=== PATIENT | female | born 1955 | race Caucasian/White ===

== ENCOUNTER → 2019-07-01 | Outpatient (CLI) | payer OTHER ==
--- NOTE | 2019-07-01 15:11 | RAD ---
EXAM DESCRIPTION: Chest x-ray 2 Views CLINICAL HISTORY: DYSPNEA UNSPEC COMPARISON: June 14, 2015 TECHNIQUE: PA/lateral FINDINGS: Heart size is large with normal pulmonary vascularity. No pleural effusion or pneumothorax. Mild increased density in the lung bases may be partial volume loss. Mid and upper lungs are clear. Lateral view shows intact sternum and T-spine. No definite consolidation on the lateral view to suggest pneumonia. Chest x-ray is taken in a lesser degree of inspiration than on the previous study. IMPRESSION: No acute process is identified in the chest. Electronically signed by: Mazin Doss MD 07/01/2019 3:09 PM CDT
== END ==
LOC: LAB.O 10:53
PROVIDERS: ATTEND Nurse Practitioner Family
DX: Z00.00 Encounter for general adult medical examination without abnormal findings (principal); R06.00 Dyspnea, unspecified; E78.49 Other hyperlipidemia; E66.8 Other obesity; I10 Essential (primary) hypertension

== ENCOUNTER → 2019-08-04 | Outpatient (CLI) | payer OTHER ==
--- NOTE | 2019-08-06 08:27 | RAD ---
EXAM DESCRIPTION: Lumbar Spine 3 Views CLINICAL HISTORY: 64 years Female, RADICULOPATHY COMPARISON: None. TECHNIQUE: 3 views of the lumbosacral spine. IMPRESSION: 5 lumbar type vertebral bodies. Most inferior disc space designated as L5-S1. Mild anterior compression deformity along the superior endplate of L1. MRI may be obtained to further evaluate for compression fracture, especially if in the setting of trauma or injury. Straightening the lumbar spine which may be contributed by patient positioning or muscle spasm. Maintained AP alignment without listhesis. Subtle dextrocurvature centered at L3 but is likely positional. No lateral translation. Moderate facet arthropathy at L5-S1. Disc space heights predominantly maintained. Cholecystectomy clips within the right upper abdomen. Partially calcified aorta. Electronically signed by: Servando Farris MD 08/06/2019 8:25 AM CDT
== END ==
LOC: RAD 14:36
PROVIDERS: ATTEND Nurse Practitioner Family
DX: Z90.49 Acquired absence of other specified parts of digestive tract (principal); I70.0 Atherosclerosis of aorta; M46.97 Unspecified inflammatory spondylopathy, lumbosacral region; M54.16 Radiculopathy, lumbar region

== ENCOUNTER 2020-08-31 10:59 | Inpatient (IN) | payer MEDICARE, OTHER ==
[2020-08-31] MEDS ORDERED: SODIUM CHLORIDE 0.9% 1000ML 1,000 ML IVS ONE ×3 (11:49→14:20)
[2020-08-31] MEDS ORDERED: SODIUM CHLORIDE 0.9% (FLUSH) 10 ML SYG IV PRN ×2 (11:49→18:00)
[2020-08-31] MEDS ORDERED: NITROGLYCERIN 0.4 MG 25 EA TAB SL ONE (11:52)
--- NOTE | 2020-08-31 14:25 | ED.PDOC ---
History of Present Illness - General Chief Complaint: GI Problem Stated Complaint: weakness Time Seen by Provider: 08/31/20 11:49 Source: patient, RN notes reviewed, Vital Signs reviewed Exam Limitations: no limitations - History of Present Illness Initial Comments: Patient is a 65-year-old white female who presents with complaints of nausea, diarrhea and generalized fatigue and weakness. This is been going on a couple of days. It is worsening. Patient denies any chest pain. She does complain of some mild shortness of breath, worsened with exertion. The shortness of breath is better with rest. Patient denies any pain. Timing/Duration: other - 2 to 3 days Severity: moderate Improving Factors: rest Worsening Factors: movement Associated Symptoms: malaise, shortness of breath, weakness Allergies/Adverse Reactions: Allergies NO KNOWN ALLERGY Allergy (Verified 08/31/20 12:30) Review of Systems - Review of Systems Constitutional: States: see HPI, malaise, weakness. Denies: chills, fever EENTM: States: no symptoms reported. Denies: eye pain, blurred vision, double vision Respiratory: States: see HPI, short of breath. Denies: cough, wheezing Cardiology: States: no symptoms reported. Denies: chest pain, palpitations, syncope Gastrointestinal/Abdominal: States: see HPI, nausea. Denies: abdominal pain, vomiting Genitourinary: States: no symptoms reported. Denies: dysuria, frequency Musculoskeletal: States: no symptoms reported. Denies: back pain, joint pain, neck pain Skin: States: change in color - Pale. Denies: rash Neurological: States: see HPI, weakness. Denies: paresthesia, tingling, tremors Endocrine: States: no symptoms reported. Denies: increased hunger, increased thirst, increased urine Hematologic/Lymphatic: States: no symptoms reported, other - Patient with intermittent rectal bleeding. Denies: blood clots All other Systems: No Change from Baseline Family Medical History - Family History Mother Family History: Unknown Physical Exam - Physical Exam General Appearance: Alert, Anxious, Obvious distress, Well Developed, Well Groomed, Well Hydrated, Well Nourished Eye Exam: bilateral normal Ears, Nose, Throat: hearing grossly normal, normal ENT inspection Neck: non-tender, full range of motion, supple, normal inspection Respiratory: chest non-tender, lungs clear, normal breath sounds, no accessory muscle use, respiratory distress - Mild tachypnea Cardiovascular/Chest: normal peripheral pulses, no edema, no gallop, no JVD, no murmur, tachycardia Peripheral Pulses: radial,right: 2+, radial,left: 2+ Gastrointestinal/Abdominal: normal bowel sounds, non tender, soft, no organomegaly, no pulsatile mass Rectal Exam: other - By lab patient is heme occult positive Back Exam: normal inspection, no CVA tenderness, no vertebral tenderness Extremity: normal range of motion, non-tender, normal inspection, no pedal edema Neurologic: chart computer II-XII nml as tested, no motor/sensory deficits, alert, normal mood/affect, oriented x 3 Skin Exam: warm/dry, pallor Lymphatic: no adenopathy Progress - Progress Progress: Differential diagnosis: GI bleed, UTI, gastroenteritis, dehydration among others 08/31/20 14:29 Patient with significant anemia. She is heme positive from below. Patient is not actively bleeding from her rectum at this time. Plan on admission to the hospital for transfusion. I discussed this plan of care with the patient she vo ices understanding and agreement. I discussed this with Tarun Lewis, KELVIN, he accepts the patient for admission. Patient's vitals have improved markedly after IV fluids. Plan on starting transfusion in the ED. Joesph Siddiqi M.D. #[id number] - Results/Orders Results/Orders: 08/31/20 11:49 IV Care:Saline Lock per Protoc QSHIFT Sodium Chloride 0.9% (Flush) [Saline Flush Syringe] 10 ml IV PRN PRN URINALYSIS Stat 08/31/20 11:50 Telemetry .ONCE Pulse Ox Stat 08/31/20 12:00 EKG STAT 08/31/20 13:08 PRBC [PACKED CELLS,LR] Stat TYPE AND SCREEN Stat Laboratory Results - last 24 hr 08/31/20 08/31/20 08/31/20 12:15 12:15 13:08 WBC 15.6 H RBC 2.82 L Hgb 6.0 L* Hct 21.0 L MCV 74.3 L MCH 21.4 L MCHC 28.8 L RDW 18.6 H Plt Count 453 H MPV 7.3 L Absolute Neuts (auto) 13.00 H Absolute Lymphs (auto) 1.20 Absolute Monos (auto) 1.40 H Absolute Eos (auto) 0.00 Absolute Basos (auto) 0.00 Neutrophils % 83.4 H Lymphocytes % 7.6 L Monocytes % 8.7 Eosinophils % 0.1 L Basophils % 0.2 Normal RBC Morphology Plts lary increased PT 11.0 H INR 1.11 PTT (SP) 24.8 Sodium 136 Potassium 3.6 Chloride 102 Carbon Dioxide 23 Anion Gap 14.6 BUN 21 H Creatinine 1.87 H BUN/Creatinine Ratio 11.2 Random Glucose 118 H Serum Osmolality 276.0 Calcium 7.3 L Magnesium 1.6 L Total Bilirubin 0.8 Direct Bilirubin 0.1 Indirect Bilirubin 0.7 AST 18 ALT 16 Alkaline Phosphatase 75 Creatine Kinase 193 H CK-MB (CK-2) 3.8 CK-MB (CK-2) % 1.97 Troponin I < 0.02 B-Natriuretic Peptide 61.1 Serum Total Protein 5.9 L Albumin 2.8 L Lipase 23 Stool Occult Blood Patient ABO/Rh O POSITIVE Antibody Screen Negative Crossmatch See Detail 08/31/20 13:30 WBC RBC Hgb Hct MCV MCH MCHC RDW Plt Count MPV Absolute Neuts (auto) Absolute Lymphs (auto) Absolute Monos (auto) Absolute Eos (auto) Absolute Basos (auto) Neutrophils % Lymphocytes % Monocytes % Eosinophils % Basophils % Normal RBC Morphology PT INR PTT (SP) Sodium Potassium Chloride Carbon Dioxide Anion Gap BUN Creatinine BUN/Creatinine Ratio Random Glucose Serum Osmolality Calcium Magnesium Total Bilirubin Direct Bilirubin Indirect Bilirubin AST ALT Alkaline Phosphatase Creatine Kinase CK-MB (CK-2) CK-MB (CK-2) % Troponin I B-Natriuretic Peptide Serum Total Protein Albumin Lipase Stool Occult Blood Positive H Patient ABO/Rh Antibody Screen Crossmatch Vital Signs 08/31/20 12:00 O2 Sat by Pulse 81 L Oximetry Departure - Departure Clinical Impression: Weakness GI bleed Qualifiers: GI bleed type/associated pathology: unspecified gastrointestinal hemorrhage type Qualified Code(s): K92.2 - Gastrointestinal hemorrhage, unspecified Time of Disposition: 14:32 Disposition: Admit Patient Condition: Fair Departure Forms: ED Discharge - Pt. Copy, Patient Portal Self Enrollment Diet: resume usual diet Activity: increase activity as tolerated Referrals: Adalberto Lewis MD [Primary Care Provider] - 1-2 Weeks Critical Care Note - Critical Care Note Total Time (mins): 45 Decision To Admit - Decistion To Admit Decision to Admit Date: 08/31/20 Decision to Admit Time: 14:15
[2020-08-31] MEDS ORDERED: SODIUM CHLORIDE 0.9% 500ML 500 ML ONE (14:48)
--- NOTE | 2020-08-31 16:00 | HP ---
SUPERVISING PHYSICIAN: Gavin Friedman MD CHIEF COMPLAINT: Weakness. HISTORY OF PRESENT ILLNESS: Ms. Johnson is a 65-year-old female patient with past medical history of chronic obstructive pulmonary disease, gastroesophageal reflux disease, hyperlipidemia, hypertension and cerebrovascular accident. She presented to the Emergency Room complaining of some generalized nausea, weakness and diarrhea for the last 3 to 4 days. She denied any chest pains or any significant other neurological deficits other than generalized weakness. Her H&H on labs showed she was significantly anemic with hemoglobin 6 and hematocrit 21. Platelet count was a little high at 453, but she did have a leukocytosis of 15,600 as well with a left shift. Occult blood in the Emergency Room was positive. The patient denied any actual significant changes in her stool other than she thought some of her stool within the last month had been a little bit darker than normal. She is not on any blood thinners. Coagulation studies showed normal PT and PTT. Chemistries showed creatinine elevated at 1.87, but electrolytes were all within normal limits. Liver functions were within normal limits. Magnesium was a little low at 1.6. Lipase normal at 23. Urinalysis did show microscopic of 3 to 5 WBCs, no RBCs, but 3+ bacteria. Her vital signs showed she was hemodynamically stable with temperature 98.4, pulse 93, blood pressure 126/65, saturation 93% on 2 liters nasal cannula. Chest x-ray revealed pulmonary opacities. Given the patient's significant anemia and concerns for pneumonia and no obvious acute bleeding, after further assessment, the ER physician has requested the patient be admitted for transfusion of 2 units of packed red blood cells and continued evaluation and monitoring. She was admitted in stable condition. PAST MEDICAL HISTORY: 1. Chronic obstructive pulmonary disease. 2. Gastroesophageal reflux disease. 3. Hyperlipidemia. 4. Hypertension. 5. Previous cerebrovascular accident. 6. Cervical cancer diagnosed in 1989. PAST SURGICAL HISTORY: 1. Hysterectomy. 2. Cholecystectomy. 3. Brain surgery. 4. Endarterectomy. HOME MEDICATIONS: Awaiting updated list of medications. ALLERGIES: NO KNOWN DRUG ALLERGIES. FAMILY HISTORY: Father is due to heart disease. Mother secondary to dementia. She has one brother with sleep apnea. SOCIAL HISTORY: The patient is retired. She is single. She has 3 children. She currently resides in [place], [place]. She does report a history of smoking, but quit and does not use alcohol or illicit drugs. REVIEW OF SYSTEMS: CONSTITUTIONAL: As noted in history of present illness, generalized weakness and malaise. Denied any actual fever or chills. HEENT: Negative for headaches, sore throats, earaches, nasal congestion, vision changes. RESPIRATORY: As noted in history of present illness, increasing shortness of breath. Denies any actual coughing or wheezing. CARDIOVASCULAR: Negative for chest pain, palpitations or syncopal episodes. GASTROINTESTINAL: Positive for nausea, but denies abdominal pain, vomiting, diarrhea or constipation. GENITOURINARY: Negative for dysuria, hematuria, polyuria. MUSCULOSKELETAL: Negative for back pain, neck pain, arthralgias. SKIN: Negative for lesions, rashes, moles. NEUROLOGIC: Negative for paresthesias, tingling, tremors. Positive for generalized weakness as noted in history of present illness. HEMATOLOGIC: Negative for unexplained bleeding although she feels like she may be having some rectal bleeding. Denies blood clots, significant bowel habit changes. PHYSICAL EXAMINATION: VITAL SIGNS: Temperature 98, pulse 81, blood pressure 176/66, respirations 20, saturation 94% on room air. GENERAL: The patient is resting comfortably. She is getting packed red blood cells. She is obese, but looks well-nourished, well-hydrated. HEENT: Tympanic membranes clear bilaterally. Oropharynx is pink, moist without any lesions. NECK: Supple, nontender with full range of motion. No jugular venous distention noted. RESPIRATORY: Lung sounds are diminished due to body size. She is mildly tachypneic, but in no respiratory stress. I do not hear any obvious rhonchi, wheezes or rales. CARDIOVASCULAR: Regular rate and rhythm without any appreciable murmurs, gallops, or rubs. ABDOMEN: Soft, obese, nontender. Positive bowel sounds. RECTAL: Deferred as it was done in the Emergency Room. BACK: No CVA or vertebral tenderness. EXTREMITIES: There is no cyanosis, clubbing or edema. NEUROLOGIC: Cranial nerves II-XII are grossly intact. Facial features are symmetrical. Extraocular movements are within normal limits. There is no nystagmus noted. The patient is alert and oriented times three. SKIN: Warm, pink and pale. LABORATORY: CBC showed white count 15,600, hemoglobin 6, hematocrit 21. Differential did a show a left shift. RBC indices indicate microcytic/hypochromic presentation. Platelet count 453,000. Coagulation studies showed normal PT and PTT. Chemistries showed normal electrolytes with BUN 21, creatinine 1.7. Glucose 118, magnesium 1.6. Liver function tests within normal limits. BNP 61, creatinine 193, lipase 23. Urinalysis, microscopic revealed 0 to 1 RBCs, 3 to 5 WBCs, 1 to 3 epithelials, 2+ bacteria, small amount of mucus. She did have stool occult blood that was positive. MICROBIOLOGY: Respiratory panel was negative for all bacterial and viral targets tested. Urine culture pending. RADIOLOGY: Chest x-ray per radiologic interpretation showed positive pulmonary opacities. ASSESSMENT: 1. Symptomatic anemia, likely iron deficiency anemia, needing further workup as an outpatient, etiology uncertain with no signs of acute loss although she did have one occult blood that was positive. 2. Acute exacerbation of chronic obstructive pulmonary disease with developing bilateral pneumonia, community acquired. 3. Generalized anxiety disorder. 4. Gastroesophageal reflux disease. 5. Hyperlipidemia. 6. Previous cerebrovascular accident. 7. Cervical cancer diagnosed in 1989. PLAN: Ms. Johnson is going to be placed in observation overnight for her initial treatment with 2 units of packed red blood cells. Likely she will need to be admitted, but we will await her clinical assessment as she does have both a developing pneumonia and looks like a urinary tract infection. She will be given 2 units of packed red blood cells and 20 mg of Lasix post last unit. We will start her on azithromycin and Rocephin for treatment of pneumonia and continue coverage for the urinary tract infection awaiting culture results. I anticipate her length of stay to be at least 1 to 2 days. We will repeat labs in the morning as well as a chest x-ray. Once she gets her blood, we will certainly follow her H&H to ensure she is stable. She will need a colonoscopy at some point after she discharged unless she gets acutely worse. Until then, we will continue to monitor and treat as needed. #[id number] [facility]
[2020-08-31] MEDS ORDERED: GABAPENTIN 300 MG CAP PO ONE (16:11)
[2020-08-31] MEDS ORDERED: IV SET AND CAP CHANGE INJ INJ SCH (18:00)
[2020-08-31] MEDS ORDERED: ONDANSETRON INJ 4 MG/2 ML VIAL IV PRN (18:00)
[2020-08-31] MEDS ORDERED: FUROSEMIDE INJ 20 MG/2 ML VIAL IV ONE (18:11)
--- NOTE | 2020-08-31 18:48 | RAD ---
EXAM DESCRIPTION: Chest,1 View CLINICAL HISTORY: 65 years Female Leukocytosis COMPARISON: 07/01/2019 FINDINGS: Mild cardiac enlargement. Pulmonary hyperinflation. Some increased opacity along the lateral right chest. This may be in part due to overlying soft tissue artifact. Developing area of infiltrate is not excluded. Left lung appears clear. IMPRESSION: Positive for pulmonary opacities. Differential diagnosis includes viral infections. This may also be due to overlying soft tissue artifact Electronically signed by: Kathy Oro MD 08/31/2020 6:46 PM CDT
[2020-08-31] MEDS ORDERED: AZITHROMYCIN IV 500 MG VIAL IVPB ONE (21:50)
[2020-08-31] MEDS ORDERED: cefTRIAXone SODIUM 1 GM VIAL ONE (21:50)
[2020-08-31] MEDS ORDERED: SODIUM CHL 0.9% 50ML MIN-BAG+ 50 ML IVPB ONE (21:51)
[2020-08-31] MEDS ORDERED: SODIUM CHLORIDE 0.9% 250ML 250 ML ONE (21:51)
[2020-08-31] MEDS: cefTRIAXone SODIUM 1 GM in SODIUM CHL 0.9% 50ML MIN-BAG+ 50 ML IVPB SCH (22:21)
[2020-08-31] MEDS: AZITHROMYCIN IV 500 MG in SODIUM CHLORIDE 0.9% 250ML 250 ML IVPB SCH (22:55)
[2020-08-31] MEDS: ACETAMINOPHEN 325 MG TAB PO PRN (22:55)
--- NOTE | 2020-09-01 07:10 | RAD ---
EXAM: XR Chest, 1 View CLINICAL HISTORY: pneumonia TECHNIQUE: Frontal view of the chest. COMPARISON: 08/31/2020 FINDINGS: Lungs: Stable diffuse interstitial thickening. Pleural space: No pneumothorax or pleural effusion. Heart: Stable cardiac enlargement. Mediastinum: No abnormality noted. Bones/joints: No osseous destruction or sclerosis noted. IMPRESSION: Stable abnormalities as above. Electronically signed by: Mariella Barragan MD 09/01/2020 7:09 AM CDT
[2020-09-01] MEDS ORDERED: MAGNESIUM SULFATE PREMIX 2GM 2 GM in PREMIX BAG 1 BAG IVPB ONE (08:28)
[2020-09-01] MEDS: OMEPRAZOLE CAP 20 MG CAP PO SCH (09:19)
[2020-09-01] MEDS: ESCITALOPRAM 10 MG TAB PO SCH (09:19)
[2020-09-01] MEDS: LOSARTAN POTASSIUM 100 MG TAB PO SCH (09:19)
[2020-09-01] MEDS: CLOPIDOGREL 75 MG TAB PO SCH (09:20)
[2020-09-01] MEDS: GABAPENTIN 300 MG CAP PO SCH ×3 (09:20→20:44)
[2020-09-01] MEDS: ASPIRIN (CHEWABLE) 81 MG TAB PO SCH (09:20)
[2020-09-01] MEDS: hydroCHLOROthiazide 25 MG TAB PO SCH (09:20)
[2020-09-01] MEDS ORDERED: ALBUTEROL SULFATE 2.5 MG/3 ML VIAL NEB PRN (10:04)
[2020-09-01] MEDS ORDERED: IPRATROPIUM/ALBUTEROL 3 ML VIAL NEB ONE (10:56)
[2020-09-01] MEDS: IPRATROPIUM/ALBUTEROL 3 ML VIAL NEB SCH ×3 (10:59→20:44)
[2020-09-01] MEDS: cefTRIAXone SODIUM 1 GM in SODIUM CHL 0.9% 50ML MIN-BAG+ 50 ML IVPB SCH (18:45)
[2020-09-01] MEDS ORDERED: ATORVASTATIN 20 MG TAB PO ONE (19:21)
[2020-09-01] MEDS ORDERED: CETIRIZINE HCL 10 MG TAB PO ONE (19:21)
[2020-09-01] MEDS: AZITHROMYCIN IV 500 MG in SODIUM CHLORIDE 0.9% 250ML 250 ML IVPB SCH (19:49)
[2020-09-01] MEDS ORDERED: CETIRIZINE HCL 10 MG TAB PO SCH (21:00)
[2020-09-01] MEDS ORDERED: ATORVASTATIN 20 MG TAB PO SCH (21:00)
[2020-09-02] MEDS: OMEPRAZOLE CAP 20 MG CAP PO SCH (06:25)
[2020-09-02] MEDS: ACETAMINOPHEN 325 MG TAB PO PRN (06:39)
[2020-09-02] MEDS: ESCITALOPRAM 10 MG TAB PO SCH (08:49)
[2020-09-02] MEDS: GABAPENTIN 300 MG CAP PO SCH (08:50)
[2020-09-02] MEDS: hydroCHLOROthiazide 25 MG TAB PO SCH (08:50)
[2020-09-02] MEDS: CLOPIDOGREL 75 MG TAB PO SCH (08:50)
[2020-09-02] MEDS: LOSARTAN POTASSIUM 100 MG TAB PO SCH (08:50)
[2020-09-02] MEDS: ASPIRIN (CHEWABLE) 81 MG TAB PO SCH (08:50)
--- NOTE | 2020-09-02 08:54 | PN ---
SUPERVISING PHYSICIAN: Gavin Friedman MD DATE: 09/01/20 SUBJECTIVE: The patient feels much better today after 2 units of packed red blood cells. She had no complications from the transfusion. She does have a little cough that is kind of productive. She does not really report any shortness of breath. She does report that she is still having a little bit of bright red blood per rectum. I told her I would get Dr. Hunter to look at this and do further exam and will need followup in the outpatient setting as far as colonoscopy and EGD. We will follow her hemoglobin and hematocrit over the next 24 hours and make sure those are staying stable and treat her for the pneumonia. OBJECTIVE: VITAL SIGNS: Temperature 97.6, pulse 91, blood pressure 140/75, respirations 20, saturation 93% on 2.5 liters nasal cannula. GENERAL: The patient is resting comfortably in no acute distress. She is sitting on the edge of the bed. CHEST: Lung sounds are a little diminished towards the bases. I do not hear any obvious wheezing or rhonchi. HEART: Regular rate and rhythm. ABDOMEN: Obese, but soft and nontender. Positive bowel sounds. EXTREMITIES: No edema. NEUROLOGIC: Alert and oriented times three. LABORATORY: H&H this morning after 2 units is up to hemoglobin 8.5 and hematocrit 27.1. Platelet count 430,000. Differential shows a left shift with white count now down to 11.6. Repeat of her H&H later in the afternoon showed she was remaining stable with hemoglobin 8.5 and hematocrit 26.5. Chemistries showed potassium 3.3, creatinine 1.6 which is better than admission at 1.87. Calcium 7.5 which does correct to 7.8 with albumin 3. Iron was low at 16, TIBC high at 418 with iron saturation 3.8. Ferritin was not done. B12 was cancelled. Urinalysis showed on admission 3 to 4 WBCs, no RBCs, 1 to 3 epithelial with 3+ bacteria. MICROBIOLOGY: Urine culture negative at 24 hours. Respiratory panel was negative for all bacterial and viral antigens tested. RADIOLOGY: Chest x-ray this morning per radiologic interpretation showed stable diffuse interstitial thickening, no pneumothorax or pleural effusion. ASSESSMENT: 1. Symptomatic anemia, likely due to iron deficiency, requiring 2 units of packed RBCs, showing stable hemoglobin and hematocrit. 2. Acute exacerbation of chronic obstructive pulmonary disease secondary to bilateral pneumonia, community acquired. 3. Generalized anxiety disorder. 4. Gastroesophageal reflux disease. 5. Hyperlipidemia. 6. Previous cerebrovascular accident. 7. Cervical cancer diagnosed in 1989. PLAN: We will continue to her H&Hs at least q.6-8h. She is being treated for pneumonia and underlying questionable urinary tract infection. Cultures are pending. She is on Rocephin and azithromycin. I have not started her back on any kind of anticoagulation and waiting to see what her H&H does. I have requested Dr. Hunter to see her in consultation in regards to the questionable rectal bleeding. I would anticipate hopefully she can discharge either tomorrow or the next day on some home antibiotics to manage clinically as an outpatient. Until then, we will continue to monitor and treat as needed. #[id number] [facility]
[2020-09-02] MEDS: IPRATROPIUM/ALBUTEROL 3 ML VIAL NEB SCH ×2 (09:09→13:10)
[2020-09-02 14:09] VITALS: BP 110/75; TEMP 98.1; O2SAT 95
--- NOTE | 2020-09-02 22:07 | DS ---
SUPERVISING PHYSICIAN: Gavin Friedman M.D. DISCHARGE DIAGNOSIS: 1. Symptomatic anemia, likely due to iron deficiency, requiring 2 units of packed RBCs, now showing a stable hemoglobin and hematocrit. 2. Acute exacerbation of chronic obstructive pulmonary disease secondary to bilateral pneumonia, community acquired. 3. Generalized anxiety disorder. 4. Gastroesophageal reflux disease. 5. Hyperlipidemia. 6. History of cerebrovascular accident. 7. Cervical cancer diagnosed in 1989. HISTORY OF PRESENT ILLNESS: This is a 65-year-old female patient who has a past medical history of chronic obstructive pulmonary disease, gastroesophageal reflux disease, hyperlipidemia, hypertension and cerebrovascular accident. She came to the Emergency Room complaining of generalized weakness with nausea and diarrhea that had been going on 3 to 4 days prior to coming to the Emergency Room. She denied any chest pain or any significant other neurological deficits. She was mostly just complaining of generalized weakness. Her H&H showed hemoglobin 6 and hematocrit 21. Platelets were 453. She had a leukocytosis of 15,600 with a left shift. Stool occult blood was positive. The patient actually denied any actual significant changes in her stool other than she thought that her stool in the last month had been slightly darker. She was not on any blood thinners. PT and PTT were within normal limits. Chemistry showed creatinine elevated at 1.87, but electrolytes were all unremarkable. Liver function tests were unremarkable. Magnesium was a little low and she received some magnesium supplementation. Urinalysis did show microscopic of 3 to 5 WBCs, no RBCs, but 3+ bacteria. Her vital signs showed she was hemodynamically stable with temperature 98.4, pulse 93, blood pressure 126/65, O2 saturation of 93% on 2 liters nasal cannula. Chest x-ray revealed pulmonary opacities. Due to the patient's significant anemia and concerns for pneumonia as well as not having any obvious acute bleeding, she was admitted to the hospital for transfusion of 2 units of packed red blood cells and for treatment of an exacerbation of her chronic obstructive pulmonary disease. HOSPITAL COURSE: The patient was admitted to the hospital and given 2 units of packed red blood cells. She was also treated for developing pneumonia as well as exacerbation of chronic obstructive pulmonary disease and a urinary tract infection. She was started on azithromycin and Rocephin. Labs were repeated and they stabilized as well as her vital signs remained stable. Dr. Hunter was consulted and felt that she needed both an upper and lower scope, but that she did not need any acute treatment in the hospital, and he would see her in hospital followup. She felt much better after her infusion of 2 units of blood. She is stable and will be discharged home today in stable condition. LABORATORY: WBCs started at 15,600 and came down to 11,600. Initially her H&H was 6.0 and 21, today it is 8.5 and 26.5. Electrolytes have remained within normal limits. Creatinine on admission was 1.87 and is now 1.03. Calcium on admission was 7.3 and is now 7.9. Iron was 16, TIBC was 18, iron saturation 3.8. Urine culture shows no growth after 48 hours. RADIOLOGY: Final chest x-ray shows stable abnormalities as per the chest x-ray report. DISCHARGE PLAN: The patient will be discharged home in stable condition. She is to have [facility] out of [facility]. She is to resume her previous diet and increase her activity as tolerated. She has a followup appointment with Dr. Adalberto Lewis on 09/05/20 at 3:30 PM. It will be a regular office visit and she will have a CBC drawn at her followup appointment. She will also have a followup appointment with Dr. Moises Hunter on 09/07/20 at 10:20 AM. In addition to her routine medications, she will have Cefdinir for 7 days and azithromycin for 4 days. She is to return to the hospital or followup with Dr. Lewis or Dr. Hunter or return to the hospital for any problems or complications. DISCHARGE MEDICATIONS: 1. Atorvastatin. 2. Hydrochlorothiazide. 3. Levocetirizine. 4. Losartan. 5. Plavix. 6. Omeprazole. 7. Lexapro. 8. Gabapentin. 9. Aspirin. 10. Cefdinir. 11. Azithromycin. #[id number] [facility]
== END 2020-09-02 15:19 | disposition home health service (06) | DRG 811 ==
LOC: ER 10:59 → OBSVTOIN 15:43 → MS 15:43
PROVIDERS: ADMIT Nurse Practitioner Family; ATTEND Nurse Practitioner Acute Care
PROC: 30233N1 Transfusion of Nonautologous Red Blood Cells into Peripheral Vein, Percutaneous Approach (ICD-10-PCS; principal; 2020-08-31)
DX: D50.9 Iron deficiency anemia, unspecified (principal); J18.9 Pneumonia, unspecified organism; J44.1 Chronic obstructive pulmonary disease with (acute) exacerbation; J44.0 Chronic obstructive pulmonary disease with (acute) lower respiratory infection; N39.0 Urinary tract infection, site not specified; K92.1 Melena; Z68.41 Body mass index [BMI] 40.0-44.9, adult; F41.1 Generalized anxiety disorder; K21.9 Gastro-esophageal reflux disease without esophagitis; E78.5 Hyperlipidemia, unspecified; R19.5 Other fecal abnormalities; I10 Essential (primary) hypertension; E66.9 Obesity, unspecified; Z87.891 Personal history of nicotine dependence; Z85.41 Personal history of malignant neoplasm of cervix uteri; Z86.73 Personal history of transient ischemic attack (TIA), and cerebral infarction without residual deficits

== ENCOUNTER 2020-10-07 05:37 | Day surgery (SDC) | payer MEDICARE ==
[2020-10-07] MEDS ORDERED: LACTATED RINGERS 1,000 ML ONE (06:44)
[2020-10-07] MEDS ORDERED: PROPOFOL 200 MG/20 ML VIAL IV ONE (07:00)
[2020-10-07] MEDS ORDERED: LIDOCAINE 1% 10 ML VIAL INJ ONE (07:00)
[2020-10-07] MEDS ORDERED: KETAMINE HCL 100 MG/ML VIAL ONE (07:54)
--- NOTE | 2020-10-07 08:48 | OP ---
DATE OF PROCEDURE: 10/07/20 PREOPERATIVE DIAGNOSIS: 1. Screening colonoscopy. POSTOPERATIVE DIAGNOSIS: 1. Normal colon. PROCEDURE: 1. Colonoscopy. SURGEON: Moises Hunter MD ANESTHESIA: General. FINDINGS: The mucosal surfaces appeared normal. There were no polyps. She did have significant diverticulosis on the left side. COMPLICATIONS: None. PLAN: Discharge. Followup colonoscopy in 10 years. INDICATION: As stated. PROCEDURE: General anesthesia was induced in the lateral position. Digital rectal exam was normal. The colonoscope was inserted. The rectal vault appeared normal. The scope was advanced all the way to the cecum as identified by the appendiceal orifice. Upon withdrawal, all mucosal surfaces appeared normal. There were no significant polyps seen. There was significant diverticulosis throughout the sigmoid colon and proximal descending colon. The rectum appeared normal with only small non-complicated internal hemorrhoids. The colon was aspirated. The patient tolerated the procedure and was taken to Recovery to be discharged. #[id number] cc: Adalberto Lewis MD MTDD
[2020-10-07 09:41] VITALS: BP 173/67; TEMP 98; O2SAT 96
== END 2020-10-07 09:35 | disposition home or self-care (01) ==
LOC: AMB 05:37
PROVIDERS: ATTEND Surgery
DX: Z12.11 Encounter for screening for malignant neoplasm of colon (principal); K57.30 Diverticulosis of large intestine without perforation or abscess without bleeding; K64.8 Other hemorrhoids; K21.9 Gastro-esophageal reflux disease without esophagitis; D64.9 Anemia, unspecified; F41.9 Anxiety disorder, unspecified; J44.9 Chronic obstructive pulmonary disease, unspecified; I25.10 Atherosclerotic heart disease of native coronary artery without angina pectoris; K59.00 Constipation, unspecified; E78.00 Pure hypercholesterolemia, unspecified; I10 Essential (primary) hypertension; E66.01 Morbid (severe) obesity due to excess calories; Z68.41 Body mass index [BMI] 40.0-44.9, adult; Z86.73 Personal history of transient ischemic attack (TIA), and cerebral infarction without residual deficits; Z90.49 Acquired absence of other specified parts of digestive tract; Z90.710 Acquired absence of both cervix and uterus; Z79.82 Long term (current) use of aspirin; Z79.899 Other long term (current) drug therapy
CPT/HCPCS: 00812; G0121; J3490; J7120

== ENCOUNTER → 2020-11-04 | Outpatient (CLI) | payer MEDICARE | LOC: GMA CAST 12:53 | PROVIDERS: ATTEND Family Medicine Sports Medicine | DX: R35.0 Frequency of micturition (principal); R07.2 Precordial pain ==

== ENCOUNTER 2020-11-21 05:53 | Day surgery (SDC) | payer MEDICARE, OTHER ==
[2020-11-21] MEDS: LIDOCAINE 1% 10 ML VIAL INJ ONE (09:37)
[2020-11-21] MEDS: BUPIVACAINE 0.5% 30 ML VIAL INJ ONE (09:37)
[2020-11-21] MEDS: BETAMETHASONE ACETATE/BETAMETH 6 MG/ML VIAL IM ONE (09:37)
== END 2020-11-21 10:03 | disposition home or self-care (01) ==
LOC: AMB 05:53
PROVIDERS: ATTEND Family Medicine Sports Medicine
DX: M54.5 Low back pain (principal); M47.817 Spondylosis without myelopathy or radiculopathy, lumbosacral region; I10 Essential (primary) hypertension; K21.9 Gastro-esophageal reflux disease without esophagitis; J44.9 Chronic obstructive pulmonary disease, unspecified; E78.5 Hyperlipidemia, unspecified; G47.00 Insomnia, unspecified; R60.0 Localized edema; Z86.73 Personal history of transient ischemic attack (TIA), and cerebral infarction without residual deficits; Z90.710 Acquired absence of both cervix and uterus; Z79.899 Other long term (current) drug therapy

== ENCOUNTER 2020-12-26 05:32 | Day surgery (SDC) | payer MEDICARE, OTHER ==
[~2020-12-26 05:32] MED LIST: BETAMETHASONE ACETATE/BETAMETH 6 MG/ML VIAL IM ONE; BUPIVACAINE 0.5% 30 ML VIAL INJ ONE; LIDOCAINE 1% 10 ML VIAL INJ ONE
[2020-12-26] MEDS ORDERED: BUPIVACAINE 0.5% 30 ML VIAL INJ ONE ×2 (07:18→11:20)
[2020-12-26] MEDS ORDERED: BETAMETHASONE ACETATE/BETAMETH 6 MG/ML VIAL IM ONE ×2 (07:18→11:20)
[2020-12-26] MEDS ORDERED: LIDOCAINE 1% 10 ML VIAL INJ ONE ×2 (07:18→11:20)
[2020-12-26] MEDS ORDERED: DEXAMETHASONE INJ 10 MG/ML VIAL ONE (07:18)
== END 2020-12-26 12:00 | disposition home or self-care (01) ==
LOC: AMB 05:32
PROVIDERS: ATTEND Family Medicine Sports Medicine
DX: M54.5 Low back pain (principal); M47.817 Spondylosis without myelopathy or radiculopathy, lumbosacral region; J44.9 Chronic obstructive pulmonary disease, unspecified; K21.9 Gastro-esophageal reflux disease without esophagitis; E78.5 Hyperlipidemia, unspecified; I10 Essential (primary) hypertension; G47.00 Insomnia, unspecified; Z90.710 Acquired absence of both cervix and uterus; Z85.41 Personal history of malignant neoplasm of cervix uteri; Z86.73 Personal history of transient ischemic attack (TIA), and cerebral infarction without residual deficits; Z79.899 Other long term (current) drug therapy